=== PATIENT | male | born 1990 | race Caucasian/White ===

== ENCOUNTER 2016-08-26 21:53 | Emergency (ER) | payer OTHER ==
[~2016-08-26] VITALS: Ht 193 cm; Wt 82.5 kg
[~2016-08-26 21:53] MED LIST: NOHOMEMEDS
[2016-08-26] MEDS ORDERED: NAPROSYN500 MG PO (23:37)
[2016-08-26] MEDS ORDERED: FLEXERIL10 MG PO (23:37)
[2016-08-27] VITALS: BP 126/77
== END 2016-08-27 00:02 | disposition home or self-care (01) ==
LOC: RME 21:53 → EME 21:53 → RME 08-27 00:02
DX: S43.402A Unspecified sprain of left shoulder joint, initial encounter (principal); V43.62XA Car passenger injured in collision with other type car in traffic accident, initial encounter; F17.200 Nicotine dependence, unspecified, uncomplicated
CPT/HCPCS: 71020; 73000; 99281; 99283